=== PATIENT | male | born 1955 | race Caucasian/White ===

== ENCOUNTER → 2016-12-21 | Outpatient (CLI) | payer BC, OTHER ==
[2016-12-21 12:31] LABS: Basophils # (auto) 0 uL; Basophils % (auto) 0.3 % (0.0-2.0); DEFINITIVE VIEW TRANSMISSION; Eosinophils # (auto) 0.1 uL; Eosinophils % (auto) 1.4 % (0.0-7.0); Hematocrit 39.7 % (41.0-53.0); Hemoglobin 12.4 g/dL (13.5-17.5); Lymphocytes # (auto) 1.3 uL; Lymphocytes % (auto) 14.5 % (10.0-50.0); Mean Corpuscular Hemoglobin 26.4 pg (28.0-32.0); Mean Corpuscular Hgb Conc. 31.3 g/dL (32.0-36.0); Mean Corpuscular Volume 84.2 fL (80.0-100.0); Mean Platelet Volume 9.5 fL (7.4-10.4); Monocytes # (auto) 0.5 uL; Monocytes % (auto) 5.3 % (0.0-12.0); Neutrophils % (auto) 78.5 % (37.0-80.0); Platelet Count (auto) 265 10^3/uL (140-450); Red Cell Distribution Width 14.9 % (11.6-16.0); White Blood Cell 8.9 10^3/uL (4.4-10.8)
[2016-12-21 12:33] LABS: Urine Bilirubin Negative (Negative); Urine Blood Negative /uL (Negative); Urine Color Yellow (Yellow); Urine Glucose Normal (Normal); Urine Ketone Negative (Negative); Urine Nitrite Negative (Negative); Urine Urobilinogen Normal (Negative); Urine pH 5.5 (5.0-8.0)
[2016-12-21 13:44] LABS: Albumin 3.3 g/dL (3.4-5.0); BUN/Creatinine Ratio 24.4; Bilirubin, Direct 0.1 mg/dL (0-0.2); Bilirubin, Total 0.4 mg/dL (0.2-1.0); Calcium 8.7 mg/dL (8.5-10.1); Potassium 4.2 mmol/L (3.5-5.1); Total Protein 7.8 g/dL (6.4-8.2)
== END | disposition home or self-care (01) ==
LOC: LAB 08:38
PROVIDERS: ATTEND Internal Medicine Cardiovascular Disease
DX: D64.9 Anemia, unspecified (principal); I10 Essential (primary) hypertension; E78.00 Pure hypercholesterolemia, unspecified; E03.9 Hypothyroidism, unspecified; E55.9 Vitamin D deficiency, unspecified
CPT/HCPCS: 36415; 80048; 80061; 80076; 81003; 82306; 83036; 84153; 84403; 84443; 85025

== ENCOUNTER 2019-04-06 19:15 | Inpatient (IN) | payer BC ==
[~2019-04-06] VITALS: Ht 167.6 cm; Wt 127.7 kg
[2019-04-06 20:21] LABS: Basophils # (auto) 0 uL; Basophils % (auto) 0.3 % (0.0-2.0); Eosinophils # (auto) 0 uL; Eosinophils % (auto) 0.2 % (0.0-7.0); Hematocrit 39.1 % (41.0-53.0); Hemoglobin 12.8 g/dL (13.5-17.5); Lymphocytes # (auto) 0.6 uL; Lymphocytes % (auto) 5.5 % (10.0-50.0); Mean Corpuscular Hemoglobin 27.7 pg (28.0-32.0); Mean Corpuscular Hgb Conc. 32.6 g/dL (32.0-36.0); Monocytes # (auto) 0.6 uL; Monocytes % (auto) 6.1 % (0.0-12.0); Neutrophils # (auto) 8.9 uL; Neutrophils % (auto) 87.9 % (37.0-80.0); Platelet Count (auto) 252 10^3/uL (140-450); Red Cell Distribution Width 14.4 % (11.8-14.3); White Blood Cell 10.1 10^3/uL (4.4-10.8)
[2019-04-06 20:36] LABS: BUN/Creatinine Ratio 23.5; Calcium 7.8 mg/dL (8.5-10.1); Potassium 3.7 mmol/L (3.5-5.1)
[2019-04-06 20:40] LABS: Albumin 1.8 g/dL (3.4-5.0); Bilirubin, Total 0.3 mg/dL (0.2-1.0)
[2019-04-06] MEDS ORDERED: SODIUM CHLORIDE 0.9% 500 ML IV ONE (21:01)
[2019-04-06] MEDS ORDERED: CLINDAMYCIN 600MG IV 50 ML IV ONE (21:15)
[2019-04-06] MEDS ORDERED: ASPirin 81 mg TAB PO ONE ×2 (21:30→21:45)
[2019-04-06 21:32] LABS: Urine Bacteria FEW /hpf (None Seen); Urine Blood 1+ /uL (Negative); Urine Specific Gravity 1.015 (1.001-1.035); Urine WBC 2 /hpf (0 - 3)
[2019-04-06 22:24] LABS: INR 0.97 (0.9-1.15); Partial Thromboplastin Time 29.8 sec (23.64-32.05)
[2019-04-07] MEDS ORDERED: DEXTROSE (50%) 50ML SYRG IV ONE (01:15)
[2019-04-07] MEDS ORDERED: ONDANSETRON HCL 4 MG/2 ML VIAL IV PRN (02:15)
[2019-04-07] MEDS ORDERED: TEMAZEPAM 15 MG CAP PO PRN (02:15)
[2019-04-07] MEDS ORDERED: NITROGLYCERIN 0.4 MG SL TAB SL PRN (02:15)
[2019-04-07] MEDS ORDERED: MORPHINE SULF INJ 2 MG/ML SYRINGE 1ML IV PRN (02:15)
[2019-04-07] MEDS ORDERED: ACETAMINOPHEN 325 MG TAB PO PRN (02:15)
[2019-04-07] MEDS ORDERED: DEXTROSE (50%) 50ML SYRG IV PRN (02:15)
[2019-04-07] MEDS: DEXTROSE 10% 1,000 ML IV SCH ×2 (02:29→22:03)
[2019-04-07] MEDS ORDERED: FUROSEMIDE 20 MG/2 ML VIAL IV ONE (03:00)
--- NOTE | 2019-04-07 03:20 | NUR ---
Telemetry admit from [facility] admitted to Telemetry unit after SBAR received. Patient oriented to CAMILO CELESTE, primary RN, unit, room 276B, and unit policies regarding patient care and visiting hours. Patient now on continuous telemetry monitoring, tele box #35. Patient placed on bedside oxygen, weighed by bed scale and encouraged to call if they need something. All questions and concerns addressed, patient verbalized understanding.
[2019-04-07 03:26] LABS: CRP High Sensitivity 7.36 mg/dL (< 0.3)
[2019-04-07 03:35] VITALS: BP 129/68
[2019-04-07] MEDS: InsuLIN REG 1unit/0.01ml Soln (100units/ml) SC SCH ×5 (03:46→20:00)
[2019-04-07] MEDS: ACCU-CHEK COMFORT CURVE STRIP VI SCH ×5 (03:46→21:57)
--- NOTE | 2019-04-07 03:50 | NUR ---
Med Rec Pt states he does not remember the does of his meds but can try to figure it out today.
--- NOTE | 2019-04-07 04:00 | NUR ---
Low BG - 57 Gave pt a couple orange juices and BG ryan to 82 upon reassessment.
--- NOTE | 2019-04-07 04:20 | NUR ---
Wounds Photos Taken
[2019-04-07 05:00] VITALS: BP 110/52
[2019-04-07] MEDS ORDERED: PNEUMOCOCCAL VACC POLYS 25 MCG/0.5 ML VIAL IM ONE (05:15)
[2019-04-07] MEDS: CLINDAMYCIN 600MG IV 50 ML IV SCH ×3 (05:59→22:02)
--- NOTE | 2019-04-07 07:30 | NUR ---
Opening Shift Note Assumed care of patient, currently sleeping. No S/S of distress/SOB or pain. Will continue to monitor for changes Q1hr and PRN.
[2019-04-07 08:00] VITALS: BP 120/63
--- NOTE | 2019-04-07 08:00 | NUR ---
BLOOD SUGAR CRITICALLY LOW. FIRST CHECK 28 AND SECOND CHECK 31 PATIENT CURRENTLY ASYMPTOMATIC. MADE PATIENT DRINK 8 oz OF ORANGE JUICE AND ENCOURAGED HIM TO EAT HIS BREAKFAST TRAY.
--- NOTE | 2019-04-07 08:41 | NUR ---
BLOOD SUGAR RECHECK. BLOOD SUGAR NOW 72. WILL CONTINUE TO MONITOR.
--- NOTE | 2019-04-07 09:28 | NUR ---
Midline Placement Patient educated on need for midline placement. All risks and benefits explained and all questions and concerns addresses prior to procedure. 18g/10cm midline inserted via left brachial vein using Ultrasound. Sterile technique utilized. Blood return obtained from single lumen and flushed easily with NS using proper technique. Midline secured with saline lock; biodisc and occlusive dressing applied. Primary RN notified. Midline lot #[id number].
[2019-04-07] MEDS: ASPirin 81 mg TAB PO SCH (10:15)
[2019-04-07] MEDS: PANTOPRAZOLE 40 MG TAB PO SCH (10:15)
[2019-04-07] MEDS: cefTRIAXone 1GM/50ML D5W 50 ML IV SCH (10:15)
[2019-04-07] MEDS: FUROSEMIDE 40 MG TAB PO SCH (10:15)
[2019-04-07 12:00] VITALS: BP 151/67
[2019-04-07 17:00] VITALS: BP 147/76
--- NOTE | 2019-04-07 18:45 | NUR ---
Patient's midline is hard to flush. Line seems very positional. Iv infusion paused for the time being. will inform maintenance supervisor 2nd shift nurse that the patient may need a regular iv to continue dextrose infusion.
[2019-04-07 22:00] VITALS: BP 136/59
[2019-04-08] VITALS (7 sets, daily range): BP systolic 149–193; BP diastolic 61–83
[2019-04-08] MEDS: ACCU-CHEK COMFORT CURVE STRIP VI SCH ×7 (00:28→23:49)
--- NOTE | 2019-04-08 00:31 | NUR ---
Patient's blood sugar 160, no insulin given due to patient just had a snack and blood sugar has been running low the the day. Will continue to monitor.
--- NOTE | 2019-04-08 01:07 | NUR ---
IV insertion IV access obtained, via clean sterile technique by inserting #22 gauge catheter at right upper arm after 2 attempts. IV secured properly. No trauma to site. Patient tolerated well. Midline to MARIJA sluggish to flush and MARIJA with swelling.
[2019-04-08] MEDS: InsuLIN REG 1unit/0.01ml Soln (100units/ml) SC SCH ×7 (04:00→23:49)
[2019-04-08] MEDS: CLINDAMYCIN 600MG IV 50 ML IV SCH ×3 (05:31→21:45)
[2019-04-08 07:19] LABS: Basophils # (auto) 0 uL; Basophils % (auto) 0.4 % (0.0-2.0); Eosinophils # (auto) 0.2 uL; Eosinophils % (auto) 2.4 % (0.0-7.0); Hematocrit 36.5 % (41.0-53.0); Lymphocytes # (auto) 0.9 uL; Mean Corpuscular Hemoglobin 27.6 pg (28.0-32.0); Mean Corpuscular Hgb Conc. 32.9 g/dL (32.0-36.0); Mean Corpuscular Volume 83.8 fL (80.0-100.0); Monocytes % (auto) 10.2 % (0.0-12.0); Neutrophils # (auto) 7.3 uL; Nucleated Red Blood Cells % 0.1 %; Platelet Count (auto) 261 10^3/uL (140-450); Red Blood Cells 4.36 10^6/uL (4.5-5.90); Red Cell Distribution Width 14.4 % (11.8-14.3); White Blood Cell 9.4 10^3/uL (4.4-10.8)
[2019-04-08 07:41] LABS: BUN/Creatinine Ratio 25.2; Calcium 7.9 mg/dL (8.5-10.1); Potassium 4.1 mmol/L (3.5-5.1)
--- NOTE | 2019-04-08 07:45 | NUR ---
OFFICE CLERK ASSISTANT REPORTS PT BP 193/83 HR 78. PT A AND O X4 SITTING UP IN BED EATING BREAKFAST. RECHECKED BP BP 191/108. PAGED HOSPITALIST, HOSPITALIST CALLED BACK NEW ORDERS FOR CLONIDINE.
--- NOTE | 2019-04-08 08:16 | NUR ---
PT BLOOD SUGAR 168, INSULIN HELD. RECEIVED IN REPORT PT BLOOD SUGAR DROPS, AND PT REPORTS HE DOESN'T TAKE INSULIN AT HOME, HE REPORTS HE TAKES METFORMIN.
[2019-04-08] MEDS: cefTRIAXone 1GM/50ML D5W 50 ML IV SCH (08:34)
[2019-04-08] MEDS: cloNIDine HCL 0.1 MG TAB PO PRN ×2 (08:35→20:59)
[2019-04-08] MEDS: ASPirin 81 mg TAB PO SCH (09:58)
[2019-04-08] MEDS: ENOXAPARIN SOD 30 MG/0.3 ML SYRINGE SC SCH (09:59)
[2019-04-08] MEDS: FUROSEMIDE 40 MG TAB PO SCH (09:59)
[2019-04-08] MEDS: PANTOPRAZOLE 40 MG TAB PO SCH (09:59)
--- NOTE | 2019-04-08 11:00 | NUR ---
REASSESSED PT BP, NEW BP 161/69, HR 79. PT REPORTS NO SYMPTOMS AND IS SITTING IN CHAIR. CLEANED PT LEFT LOWER EXTREMITY WITH WITH NS AND 4X4 GAUZE AND COVERED WITH OPTIFOAM. LEFT LOWER EXTREMITY SWOLLEN 3 PLUS PITTING EDEMA AND WEEPING WITH ERYTHEMA.
--- NOTE | 2019-04-08 12:00 | NUR ---
PT REPORTS HE ATE LUNCH WELL, LOOKED AT TRAY, PT ATE APPROX 90 PERCENT OF LUNCH, BS 258, 6 UNITS INSULIN GIVEN. PT INSTRUCTED TO USE CALL LIGHT IF HE FEELS DIZZY, WEAK, SWEATY, OR HAS ANY OTHER SYMPTOMS, PT AGREED.
--- NOTE | 2019-04-08 13:03 | NUR ---
PT BP 161/69 AFTER CLON[address] PRN. PAGED [address] LATOYA TANNER, AWAITING CALL BACK.
[2019-04-08] MEDS ORDERED: BENAZEPRIL HCL 10 MG TAB PO ONE (13:15)
--- NOTE | 2019-04-08 13:45 | NUR ---
SPOKE WITH DR LATOYA TANNER, NEW ORDERS FOR BENAZEPRIL AND TO GET LIST OF PT HOME BP MEDS. PT REPORTS HE TAKES BENAZEPRIL AND DILTIAZEM, BUT IS UNABLE TO REMEMBER DOSAGES. PAGED DR TANNER TO NOTIFY HER, AWAITING CALL BACK.
[2019-04-08] MEDS: BENAZEPRIL HCL 10 MG TAB PO SCH (16:15)
[2019-04-08] MEDS ORDERED: METF-370 PO (17:28)
[2019-04-08] MEDS ORDERED: ASP81EC PO (17:30)
[2019-04-08] MEDS ORDERED: DILT60TA27 PO (17:32)
[2019-04-08] MEDS ORDERED: BENA20TA14 PO (17:33)
[2019-04-08] MEDS ORDERED: DOXA4TAB5 PO (17:34)
[2019-04-08] MEDS ORDERED: PIO30T PO (17:37)
[2019-04-08] MEDS: DEXTROSE 10% 1,000 ML IV SCH (17:39)
--- NOTE | 2019-04-08 22:08 | NUR ---
Patient's blood sugar in the 200's, patient eating well and still on D10 at 50ml/hr. Paged Hospitalist.
--- NOTE | 2019-04-08 22:09 | NUR ---
Patient informed nurse that he is using CPAP every night at home, called RT to verify, order is needed. Paged Hospitalist. Patient not aware of home settings and will let sister bring own CPAP machine tomorrow.
--- NOTE | 2019-04-08 22:17 | NUR ---
Hospitalist Charley Dean called back, new order received to D/C D10 and initiate CPAP per RT.
--- NOTE | 2019-04-09 | NUR ---
Patient's blood pressure remains in the 160's, now 161/61, HR 82, after the Clonidine 1mg po. Hospitalist paged.
[2019-04-09] MEDS: cloNIDine HCL 0.1 MG TAB PO PRN ×4 (03:56→23:07)
[2019-04-09] MEDS: InsuLIN REG 1unit/0.01ml Soln (100units/ml) SC SCH ×5 (03:57→20:57)
[2019-04-09] MEDS: ACCU-CHEK COMFORT CURVE STRIP VI SCH ×5 (03:58→20:57)
[2019-04-09 05:40] VITALS: BP 156/76
[2019-04-09] MEDS: CLINDAMYCIN 600MG IV 50 ML IV SCH ×3 (05:56→22:49)
[2019-04-09 06:38] LABS: Potassium 4.2 mmol/L (3.5-5.1)
[2019-04-09 06:51] LABS: Calcium 8.5 mg/dL (8.5-10.1)
--- NOTE | 2019-04-09 07:15 | NUR ---
Opening Shift Note Received report from Arely RN. Assumed care of patient, awake and alert. No S/S of distress or pain. Reported improved SOB. Noted left leg with open blisters and some weeping, patient said said that it is imrproving. Right leg is more improved, no weeping wounds noted. Instructed on POC and to call for assist PRN, will continue to monitor for changes Q1hr and PRN.
--- NOTE | 2019-04-09 07:30 | NUR ---
Closing Note: Patient had CPAP by RT for a few hours, not tolerating CPAP, refused to use for the rest of the night. No respiratory distress noted.
[2019-04-09 08:00] VITALS: BP 157/71
[2019-04-09] MEDS: cefTRIAXone 1GM/50ML D5W 50 ML IV SCH (08:34)
--- NOTE | 2019-04-09 09:00 | NUR ---
CALLED PHARMACIST FOR ANGEL VACCINE, SAID THAT IT WILL BE GIVEN IF PATIENT IS FOR DISCHARGE. WILL ENDORSE TO INCOMING NURSE ISA.
[2019-04-09 09:17] VITALS: BP 157/71
[2019-04-09] MEDS: ENOXAPARIN SOD 30 MG/0.3 ML SYRINGE SC SCH (09:22)
[2019-04-09] MEDS: PANTOPRAZOLE 40 MG TAB PO SCH (09:22)
[2019-04-09] MEDS: ASPirin 81 mg TAB PO SCH (09:23)
[2019-04-09] MEDS: BENAZEPRIL HCL 10 MG TAB PO SCH (09:23)
[2019-04-09] MEDS: FUROSEMIDE 40 MG TAB PO SCH (09:23)
[2019-04-09 13:07] VITALS: BP 154/74
--- NOTE | 2019-04-09 16:15 | NUR ---
Dr. Villa at bedside. Received new verbal orders regarding the left wound dressing. See new orders.
--- NOTE | 2019-04-09 17:05 | NUR ---
Wound Care Wound care provided per MD order. Patient tolerated well and verbalized dressing care instructions.
[2019-04-09 17:06] VITALS: BP 166/89
[2019-04-09] MEDS: metFORMIN HYDROCHLORIDE 500 MG TAB PO SCH (17:57)
--- NOTE | 2019-04-09 18:45 | NUR ---
Wound Care NUrse Dejah at bedside.
--- NOTE | 2019-04-09 18:52 | NUR ---
WOUND CARE NOTE: Wound care in to see patient per wound care request regarding "left leg open blisters". Patient came in with BLE edema and erythema, weeping legs. Photograph of his legs by bedside nurse upon admission for reference. Patient is 63 years old male with admitting diagnosis of Elevated Troponin. He has history of DM, htn. Patient is resting in bed in Rm. 276B. He's awake, alert and oriented. Patient is ambulatory and able to turn and reposition self. His current Artis score is 19. He denies any pain at this time. Skin/wound assessment done with the assistance of patient's nurse, CHRISTIANE Garza. Patient's BLE has edema and erythema. Swelling and erythema to LLE is worse in comparison to RLE. His Lt bird has multi open blisters, with moderate serous drainage. Wound culture specimen reported sent to lab for processing. Cleansed patient's LLE wounds with wound cleanser, patted dry with gauze,applied Thera honey gauze, covered with large abd pad, wrapped with Kerlix and secured with tape. New photograph of mentioned LLE wounds are taken for reference. understanding. Patient tolerated skin/wound examination well, and denies any other wound. US of Lower Ext dne (see result). Patient has cardiology consult. RECOMMENDATION: EOD/PRN dressing change to LLE wounds per MD order, Dietary consult due to presence of wounds and obesity, elevate BLE on pillows, continue monitoring by wound care while patient is hospitalized. Addendum: 04/09/19 at 1923 by Dejah Panchal RN Amended: Links added.
--- NOTE | 2019-04-09 19:00 | NUR ---
RELAYED RPT BLOOD PRESSURE CHECK TO HOSPITALIST. RECEIVED NEW TELEPHONE ORDER FROM SHAHID ZEPEDA, SEE NEW ORDERS.
[2019-04-09] MEDS: METOPROLOL TARTRATE 50 MG TAB PO SCH (19:33)
--- NOTE | 2019-04-09 19:35 | NUR ---
Opening Shift Note Assumed care of patient, awake and alert. No S/S of distress/SOB or pain. Instructed on POC and to call for assist PRN, will continue to monitor for changes Q1hr and PRN. Bed in low position, call raman with in reach.
[2019-04-09 21:50] VITALS: BP 191/83
[2019-04-10] MEDS: InsuLIN REG 1unit/0.01ml Soln (100units/ml) SC SCH ×6 (00:40→20:06)
[2019-04-10] MEDS: ACCU-CHEK COMFORT CURVE STRIP VI SCH ×6 (00:41→20:06)
--- NOTE | 2019-04-10 03:52 | NUR ---
PT ASSESSED FOR MED NEB TX, NO INDICATION AT THIS TIME. NO SOB/RESP DISTRESS NOTED, CLEAR LEA T/O. WILL CONTINUE TO MONITOR PRN. SEE VITALS FLOW CHART.
[2019-04-10 05:04] VITALS: BP 158/75
[2019-04-10] MEDS: CLINDAMYCIN 600MG IV 50 ML IV SCH ×3 (05:30→22:04)
[2019-04-10] MEDS: metFORMIN HYDROCHLORIDE 500 MG TAB PO SCH ×2 (05:30→17:34)
--- NOTE | 2019-04-10 07:20 | NUR ---
Opening Shift Note Received report from Arely GRANDE. Assumed care of patient, awake and alert. No S/S of distress/SOB or pain. Reported no pain, awaiting cardiology consult. NOted left lower leg with dry & intact dressing, with mild drainage. Instructed on POC and to call for assist PRN, will continue to monitor for changes Q1hr and PRN.
[2019-04-10] MEDS: BENAZEPRIL HCL 10 MG TAB PO SCH (08:12)
[2019-04-10] MEDS: cefTRIAXone 1GM/50ML D5W 50 ML IV SCH (08:12)
--- NOTE | 2019-04-10 08:13 | NUR ---
Respiratory note: ROUTINE CHECK. PT NOT WEARING CPAP. NO SOB OR DISTRESS NOTED. PT IS ON RA.
[2019-04-10 09:00] VITALS: BP 176/77
[2019-04-10] MEDS: FUROSEMIDE 40 MG TAB PO SCH (09:35)
[2019-04-10] MEDS: ENOXAPARIN SOD 30 MG/0.3 ML SYRINGE SC SCH (09:35)
[2019-04-10] MEDS: PANTOPRAZOLE 40 MG TAB PO SCH (09:36)
[2019-04-10] MEDS: ASPirin 81 mg TAB PO SCH (09:36)
[2019-04-10] MEDS: DILTIAZEM HCL 60 MG TAB PO SCH ×2 (09:36→21:28)
[2019-04-10] MEDS: METOPROLOL TARTRATE 50 MG TAB PO SCH ×2 (09:36→21:27)
--- NOTE | 2019-04-10 12:55 | NUR ---
Dr. Headley at bedside.
[2019-04-10 13:00] VITALS: BP 141/51
--- NOTE | 2019-04-10 14:59 | NUR ---
Nutrition Assessment/consult Notes please see attached link for complete assessment Est. Needs ABW [id number] kcal (17-20 kcal/kgBW), 80-101 gms pro (0.8-1.0 gms/kgBW r/t elev RFT wounds severe hypoalb). Will continue to monitor pertinent labs and reassess nutrient need prn Addendum: 04/10/19 at [address] Amended: Links added.
--- NOTE | 2019-04-10 15:00 | NUR ---
TELEMETRY MONITORING BOX RETURNED TO [facility]. PATIENT IS DOWNGRADED TO MEDSUR. WILL CONTINUE CARE.
--- NOTE | 2019-04-10 15:52 | NUR ---
PATIENT HAS [employer] CROSS INSURANCE, I.D. CARDS PHOTOCOPIED AND PLACED IN CHART.
--- NOTE | 2019-04-10 16:45 | NUR ---
Wound Care Wound care provided per MD order. Patient tolerated well and verbalized dressing care instructions.
[2019-04-10 17:00] VITALS: BP 156/79
--- NOTE | 2019-04-10 19:24 | NUR ---
Opening Shift Note Assumed care of patient, awake and alert. No S/S of distress/SOB or pain. Instructed on POC and to call for assist PRN, will continue to monitor for changes Q1hr and PRN. Call raman with in reach. Patient sitting on chair.
[2019-04-10 22:05] VITALS: BP 165/79
--- NOTE | 2019-04-10 23:11 | NUR ---
IV insertion IV access obtained, via clean sterile technique by inserting # 22 gauge catheter at left forearm. IV secured properly. No trauma to site. Patient tolerated well. IV removal IV DC'd to JUAN with clean sterile technique, catheter fully intact. Pressure dressing applied to site. Patient tolerated well.
[2019-04-11] MEDS: ACCU-CHEK COMFORT CURVE STRIP VI SCH ×6 (00:53→20:54)
[2019-04-11] MEDS: InsuLIN REG 1unit/0.01ml Soln (100units/ml) SC SCH ×6 (00:53→20:55)
[2019-04-11 05:06] VITALS: BP 159/79
[2019-04-11] MEDS: CLINDAMYCIN 600MG IV 50 ML IV SCH (05:32)
--- NOTE | 2019-04-11 06:00 | NUR ---
Respiratory note: PT NOT WEARING CPAP. NO SOB OR DISTRESS NOTED. PT IS ON RA SPO2 95% HR 71 RR 20.
[2019-04-11] MEDS: metFORMIN HYDROCHLORIDE 500 MG TAB PO SCH ×2 (06:10→17:37)
[2019-04-11 06:37] LABS: Calcium 8.4 mg/dL (8.5-10.1); Potassium 4.6 mmol/L (3.5-5.1)
--- NOTE | 2019-04-11 07:20 | NUR ---
Opening Shift Note RECEIVED REPORT FROM NOC RN. Assumed care of patient, awake and alert. No S/S of distress/SOB or pain. BED IN LOWEST, LOCKED POSITION WITH SIDERAILS UP x2. Instructed on POC and to call for assist PRN, will continue to monitor for changes Q1hr and PRN.
--- NOTE | 2019-04-11 07:55 | NUR ---
Patient sitting in chair, no acute distress noted. Swelling noted on the left lower leg covered with wound dressing.
--- NOTE | 2019-04-11 08:00 | NUR ---
Patient sitting in bed, eating breakfast, wearing eyeglasses/shades. No acute distress noted. Addendum: 04/11/19 at 0814 by Celsa Camacho RN WRONG PATIENT.
[2019-04-11 08:30] VITALS: BP 153/52
[2019-04-11] MEDS: cefTRIAXone 1GM/50ML D5W 50 ML IV SCH (08:49)
[2019-04-11] MEDS: ASPirin 81 mg TAB PO SCH (10:27)
[2019-04-11] MEDS: DILTIAZEM HCL 60 MG TAB PO SCH ×2 (10:28→22:46)
[2019-04-11] MEDS: METOPROLOL TARTRATE 50 MG TAB PO SCH ×2 (10:28→22:45)
[2019-04-11] MEDS: FUROSEMIDE 40 MG TAB PO SCH (10:28)
[2019-04-11] MEDS: BENAZEPRIL HCL 10 MG TAB PO SCH (10:29)
[2019-04-11] MEDS: PANTOPRAZOLE 40 MG TAB PO SCH (10:29)
[2019-04-11] MEDS: ENOXAPARIN SOD 30 MG/0.3 ML SYRINGE SC SCH (10:29)
[2019-04-11] MEDS: cloNIDine HCL 0.1 MG TAB PO PRN (12:13)
--- NOTE | 2019-04-11 12:45 | NUR ---
Dr. Headley at bedside. assessed the left lower leg of the patient. Dr. Headley to call Dr. Davis.
--- NOTE | 2019-04-11 12:50 | NUR ---
Dr. Davis came over.
--- NOTE | 2019-04-11 12:55 | NUR ---
Cleaned thew left lower leg, Hydraguard skin protectant applied, Abd pad applied, rolled with Kerlix. Addendum: 04/11/19 at 1555 by Celsa Camcaho RN the
[2019-04-11 13:06] VITALS: BP 163/75
--- NOTE | 2019-04-11 13:10 | NUR ---
Dr. Davis came over. ordered PICC Line Consult, Dobutamine drip.
--- NOTE | 2019-04-11 14:00 | NUR ---
Patient has pending PICC Line Consult. Dobutamine and Lasix drip on hold.
[2019-04-11 15:13] LABS: INR 1.02 (0.9-1.15); Partial Thromboplastin Time 29.2 sec (23.64-32.05)
--- NOTE | 2019-04-11 15:20 | NUR ---
Patient on PICC Line Consult.
--- NOTE | 2019-04-11 16:03 | NUR ---
PICC line placement Patient educated on need for PICC line placement. All risks and benefits explained and all questions and concerns addressed prior to procedure. Noted past medical history and allergies with no contraindications. INR and Plt counts within acceptable range. 5 fr PICC line inserted via right brachial vein using [employer] US and Tip Location System. Sterile technique with maximum barrier precautions utilized. Blood return obtained from each of the three lumens and each flushed easily with NS using proper technique. PICC secured with Stat-lock; biodisc and occlusive dressing applied. Stat portable chest x-ray obtained for PICC tip placement. *Baseline Arm Circumference 36 cm. *Internal Length 45 cm. *External Length 0 cm. *PICC lot #[id number]. Note: EBL 5ccs.
[2019-04-11] MEDS ORDERED: LIDOCAINE 1% (LOCAL ANESTH.) PF 5ml SDV ID ONE (16:15)
--- NOTE | 2019-04-11 16:25 | NUR ---
Called Pharmacy for the Lasix drip. Pharmacy to send the medication.
[2019-04-11] MEDS: DOBUTamine 1000MCG/ML 250 ML IV SCH ×2 (16:28→22:44)
[2019-04-11] MEDS: FUROSEMIDE INJECTION 250 MG in D5W 5% 225 ML IV SCH (16:30)
--- NOTE | 2019-04-11 16:42 | NUR ---
Okay to use PICC Line X-ray completed. Primary RN notified.
[2019-04-11 17:11] VITALS: BP 139/73
--- NOTE | 2019-04-11 18:41 | NUR ---
Informed Dr. Davis if he will order to upgrade the patient to Telemetry, patient is on Dobutamine and Lasix drip as he ordered.
--- NOTE | 2019-04-11 19:10 | NUR ---
Dr. Davis ordered to upgrade the patient to Telemetry.
--- NOTE | 2019-04-11 19:15 | NUR ---
Opening Shift Note Received report from CHRISTIANE Steen and assumed care of patient, awake and alert. No S/S of distress/SOB or pain. Instructed patient and to call for assist if needed and verbalized understanding. Will continue to monitor .
[2019-04-11] MEDS: SODIUM CHLOR 0.9% PF (SALINE LOCK) 10ML VIAL/SYR IV SCH (22:44)
[2019-04-11 23:45] VITALS: BP 135/76
[2019-04-12] VITALS (7 sets, daily range): BP systolic 123–161; BP diastolic 54–82
[2019-04-12] MEDS: ACCU-CHEK COMFORT CURVE STRIP VI SCH ×6 (00:44→21:08)
[2019-04-12] MEDS: InsuLIN REG 1unit/0.01ml Soln (100units/ml) SC SCH ×6 (00:45→21:08)
[2019-04-12] MEDS: DOBUTamine 1000MCG/ML 250 ML IV SCH ×3 (06:21→21:07)
[2019-04-12] MEDS: metFORMIN HYDROCHLORIDE 500 MG TAB PO SCH ×2 (06:22→17:51)
[2019-04-12] MEDS: cloNIDine HCL 0.1 MG TAB PO PRN (08:40)
--- NOTE | 2019-04-12 08:40 | NUR ---
BP = 161/69. Catapres 0.1 mg PO given for SBP>150.
[2019-04-12] MEDS: SODIUM CHLOR 0.9% PF (SALINE LOCK) 10ML VIAL/SYR IV SCH ×2 (10:00→22:24)
[2019-04-12] MEDS: ENOXAPARIN SOD 30 MG/0.3 ML SYRINGE SC SCH (10:16)
[2019-04-12] MEDS: METOPROLOL TARTRATE 50 MG TAB PO SCH ×2 (10:16→22:24)
[2019-04-12] MEDS: ASPirin 81 mg TAB PO SCH (10:16)
[2019-04-12] MEDS: PANTOPRAZOLE 40 MG TAB PO SCH (10:16)
[2019-04-12] MEDS: BENAZEPRIL HCL 10 MG TAB PO SCH (10:17)
[2019-04-12] MEDS: DILTIAZEM HCL 60 MG TAB PO SCH ×2 (10:18→22:24)
[2019-04-12] MEDS: LEVOFLOXACIN 500MG 100 ML IV SCH (10:23)
[2019-04-12] MEDS: FUROSEMIDE INJECTION 250 MG in D5W 5% 225 ML IV SCH (14:50)
--- NOTE | 2019-04-12 17:04 | NUR ---
WOUND CARE WOUND CARE PERFORMED TO LEFT LOWER EXTREMITY. WOUND CLEANED WITH NORMAL SALINE. HYDROGUARD, ABD PAD, AND KERLIX APPLIED.
[2019-04-13] MEDS: ACCU-CHEK COMFORT CURVE STRIP VI SCH ×6 (00:23→20:52)
[2019-04-13] MEDS: InsuLIN REG 1unit/0.01ml Soln (100units/ml) SC SCH ×6 (00:25→20:51)
[2019-04-13] MEDS: DOBUTamine 1000MCG/ML 250 ML IV SCH ×4 (04:04→23:29)
[2019-04-13 05:00] VITALS: BP 144/71
[2019-04-13] MEDS: metFORMIN HYDROCHLORIDE 500 MG TAB PO SCH ×2 (06:06→18:17)
[2019-04-13 08:54] VITALS: BP 157/61
--- NOTE | 2019-04-13 10:00 | NUR ---
Wound dressing change done. Cleaned the wound on the left lower leg, applied Hydraguard skin protectant, Abd pad applied, rolled with Kerlix.
[2019-04-13] MEDS: LEVOFLOXACIN 500MG 100 ML IV SCH (10:09)
[2019-04-13] MEDS: SODIUM CHLOR 0.9% PF (SALINE LOCK) 10ML VIAL/SYR IV SCH ×2 (10:10→21:47)
[2019-04-13] MEDS: ENOXAPARIN SOD 30 MG/0.3 ML SYRINGE SC SCH (11:32)
[2019-04-13] MEDS: BENAZEPRIL HCL 10 MG TAB PO SCH (11:33)
[2019-04-13] MEDS: PANTOPRAZOLE 40 MG TAB PO SCH (11:34)
[2019-04-13] MEDS: DILTIAZEM HCL 60 MG TAB PO SCH ×2 (11:34→21:44)
[2019-04-13] MEDS: ASPirin 81 mg TAB PO SCH (11:35)
[2019-04-13] MEDS: METOPROLOL TARTRATE 50 MG TAB PO SCH ×2 (11:35→21:45)
--- NOTE | 2019-04-13 12:46 | NUR ---
Nutrition Follow-up Notes Wt.: 132.5 kg Pt's asleep, no immediate family member at bedside during rounds this morning. Pt's no signs of distress noted earlier, per records pt with severe chf. pt is currently on CCHO 60 gm/meal diet with adequate PO of 100% x 5 per RN doc Est. Needs ABW [id number] kcal (17-20 kcal/kgBW), 80-101 gms pro (0.8-1.0 gms/kgBW r/t elev RFT wounds severe hypoalb). Will continue to monitor pertinent labs and reassess nutrient need prn Labs: No new labs today 04/11: BUN 30 H, CA 8.4 , POC GLU 158 H Skin: Artis scale 20, low risk cellulitis with blister on leg per RN doc. refer to WC notes for details GI: Pt had 1 BM today per supervisor pleating. PES: Altered nutrition related lab values r/t current/chronic medical condition aeb elev RFT A1C, severe hypoalb, hyperglycemia Decreased nutrient needs r/t adiposity aeb pt`s high BMI of 52.4 kgm2 and pt reporting unhealthy eating habits Will continue to monitor PO intake, skin status, pertinent labs and weight trend. F/u in 3 to 5 days. Rec.: 1.) refer to CDE on DC. 2) consider MVI/C bid. 3) consider prostat 1 packet bid as RFT improve. 4) consider 2 mg na along with current diet. 5) continue current plan of care
[2019-04-13 13:00] VITALS: BP 132/82
--- NOTE | 2019-04-13 15:20 | NUR ---
Patient sitting in chair, awake, no acute distress noted. Patient stated Dr. Davis came over to see him today.
[2019-04-13] MEDS: FUROSEMIDE INJECTION 250 MG in D5W 5% 225 ML IV SCH (15:26)
[2019-04-13 17:00] VITALS: BP 134/61
[2019-04-13 20:00] VITALS: BP 155/72
[2019-04-13] MEDS: ASCORBIC ACID 500 MG TAB PO SCH (21:46)
[2019-04-13 22:00] VITALS: BP 155/72
[2019-04-14] MEDS: ACCU-CHEK COMFORT CURVE STRIP VI SCH ×6 (00:43→22:22)
[2019-04-14] MEDS: InsuLIN REG 1unit/0.01ml Soln (100units/ml) SC SCH ×6 (00:45→22:22)
[2019-04-14 05:00] VITALS: BP 124/61
[2019-04-14] MEDS: metFORMIN HYDROCHLORIDE 500 MG TAB PO SCH ×2 (06:23→17:44)
[2019-04-14] MEDS: DOBUTamine 1000MCG/ML 250 ML IV SCH ×3 (06:58→16:46)
--- NOTE | 2019-04-14 07:30 | NUR ---
Patient sitting in chair, awake, oriented x4, no acute distress noted.
--- NOTE | 2019-04-14 08:20 | NUR ---
Cleansed the left lower leg, applied Hydraguard skin protectant, applied Abd pad, rolled with Kerlix.
[2019-04-14 09:00] VITALS: BP 125/71
[2019-04-14] MEDS: LEVOFLOXACIN 500MG 100 ML IV SCH (10:06)
[2019-04-14] MEDS: BENAZEPRIL HCL 10 MG TAB PO SCH (10:07)
[2019-04-14] MEDS: ASPirin 81 mg TAB PO SCH (10:08)
[2019-04-14] MEDS: PANTOPRAZOLE 40 MG TAB PO SCH (10:08)
[2019-04-14] MEDS: DILTIAZEM HCL 60 MG TAB PO SCH ×2 (10:08→22:00)
[2019-04-14] MEDS: ASCORBIC ACID 500 MG TAB PO SCH ×2 (10:08→22:21)
[2019-04-14] MEDS: MULTIPLE VITAMIN TAB PO SCH (10:08)
[2019-04-14] MEDS: METOPROLOL TARTRATE 50 MG TAB PO SCH ×2 (10:08→22:21)
[2019-04-14] MEDS: ENOXAPARIN SOD 30 MG/0.3 ML SYRINGE SC SCH (10:09)
[2019-04-14] MEDS: SODIUM CHLOR 0.9% PF (SALINE LOCK) 10ML VIAL/SYR IV SCH ×2 (10:09→22:00)
--- NOTE | 2019-04-14 12:00 | NUR ---
Patient sitting in chair, no acute distress noted.
[2019-04-14 13:00] VITALS: BP 108/51
[2019-04-14] MEDS: FUROSEMIDE INJECTION 250 MG in D5W 5% 225 ML IV SCH (13:08)
[2019-04-14 16:32] LABS: Basophils # (auto) 0.1 uL; Basophils % (auto) 0.7 % (0.0-2.0); Eosinophils # (auto) 0.3 uL; Eosinophils % (auto) 2.3 % (0.0-7.0); Hematocrit 40.3 % (41.0-53.0); Hemoglobin 13.1 g/dL (13.5-17.5); Lymphocytes # (auto) 1.6 uL; Mean Corpuscular Hemoglobin 27.2 pg (28.0-32.0); Mean Corpuscular Hgb Conc. 32.5 g/dL (32.0-36.0); Mean Corpuscular Volume 83.8 fL (80.0-100.0); Monocytes % (auto) 7.6 % (0.0-12.0); Neutrophils # (auto) 10.2 uL; Neutrophils % (auto) 77.4 % (37.0-80.0); Nucleated Red Blood Cells % 0.2 %; Platelet Count (auto) 345 10^3/uL (140-450); Red Blood Cells 4.81 10^6/uL (4.5-5.90); Red Cell Distribution Width 13.8 % (11.8-14.3); White Blood Cell 13.2 10^3/uL (4.4-10.8)
[2019-04-14 16:58] LABS: Calcium 8.3 mg/dL (8.5-10.1); Potassium 4.1 mmol/L (3.5-5.1)
[2019-04-14 17:00] VITALS: BP 116/62
[2019-04-14 17:01] LABS: BUN/Creatinine Ratio 15.7; Bilirubin, Total 0.3 mg/dL (0.2-1.0); Total Protein 7.3 g/dL (6.4-8.2)
--- NOTE | 2019-04-14 17:46 | NUR ---
Patient sitting in chair, eating dinner.
--- NOTE | 2019-04-14 19:30 | NUR ---
Opening Shift Note Assumed care of patient, eyes closed, respirations even and unlabored. No S/S of distress/SOB or pain. Bed in lowest locked position, side rails up x2, call light within reach. Dobutamine and Lasix drips infusing as ordered, see emar. Instructed on POC and to call for assist PRN, will continue to monitor for changes Q1hr and PRN.
[2019-04-14 21:59] VITALS: BP 135/50
[2019-04-15] MEDS: DOBUTamine 1000MCG/ML 250 ML IV SCH ×4 (00:37→17:48)
[2019-04-15] MEDS: ACCU-CHEK COMFORT CURVE STRIP VI SCH ×4 (00:37→16:52)
[2019-04-15] MEDS: InsuLIN REG 1unit/0.01ml Soln (100units/ml) SC SCH ×4 (00:38→17:11)
--- NOTE | 2019-04-15 02:15 | NUR ---
PICC Line Dressing Change PICC line dressing noted to be bloody, dressing change done by Riya GRANDE with a sterile technique. Cleansed with chloraprep scrub/betadine. Stat lock, and bio-patch as available. Occlusive dressing applied. Patient tolerated well, will continue to monitor.
--- NOTE | 2019-04-15 04:00 | NUR ---
Bleeding Patient noted to be bleeding under PICC line dressing at this time. Patient noted to have small skin tear per Riya RN when dressing was changed previously in shift. PICC line gives good blood return, all ports flush. Charge nurse Keyanna GRANDE made aware, will continue to monitor. No s/s of distress at this time.
[2019-04-15 05:05] VITALS: BP 112/72
[2019-04-15] MEDS: metFORMIN HYDROCHLORIDE 500 MG TAB PO SCH ×2 (06:47→18:15)
--- NOTE | 2019-04-15 07:00 | NUR ---
Closing Note Patient lying in bed, awake and alert. No s/s of distress. Will endorse care to dayshift RN.
[2019-04-15 08:00] VITALS: BP 124/53
--- NOTE | 2019-04-15 08:00 | NUR ---
Opening Shift Note Assumed care of patient, awake, alert and oriented X4. No S/S of distress/SOB or pain. Tele# 1, sinus rhythm @ 72 bpm. Right upper arm triple lumen PICC with saturated dressing, sanguinous drainage, all ports flushed with positive blood return. Per night nurseJoanne, patients right upper arm began bleeding under the PICC dressing, but not from PICC insertion site but a skin tear next to insertion site. Per night nurse. dressing had been changed but site continued to bleed. Will change dressing and assess skin integrity. Left lower extremity dressing clean, dry and intact. Instructed on POC and to call for assist PRN, verbalized understanding. Bed locked, in lowest position, call light within reach, will continue to monitor for changes Q1hr and PRN.
[2019-04-15] MEDS: METOPROLOL TARTRATE 50 MG TAB PO SCH (10:00)
[2019-04-15] MEDS: BENAZEPRIL HCL 10 MG TAB PO SCH (10:00)
[2019-04-15] MEDS: ENOXAPARIN SOD 30 MG/0.3 ML SYRINGE SC SCH (10:00)
[2019-04-15] MEDS: DILTIAZEM HCL 60 MG TAB PO SCH (10:00)
[2019-04-15] MEDS: SODIUM CHLOR 0.9% PF (SALINE LOCK) 10ML VIAL/SYR IV SCH (10:22)
[2019-04-15] MEDS: FUROSEMIDE INJECTION 250 MG in D5W 5% 225 ML IV SCH (10:26)
[2019-04-15] MEDS: ASCORBIC ACID 500 MG TAB PO SCH (11:09)
[2019-04-15] MEDS: LEVOFLOXACIN 500MG 100 ML IV SCH (11:09)
[2019-04-15] MEDS: ASPirin 81 mg TAB PO SCH (11:09)
[2019-04-15] MEDS: PANTOPRAZOLE 40 MG TAB PO SCH (11:09)
[2019-04-15] MEDS: MULTIPLE VITAMIN TAB PO SCH (11:09)
--- NOTE | 2019-04-15 12:00 | NUR ---
ROUNDS Dr Davis at bedside for rounds, new orders received and followed through. Patient updated on plan of care, verbalized understanding.
[2019-04-15 12:16] VITALS: BP 110/73
--- NOTE | 2019-04-15 18:51 | NUR ---
Discharge instructions given as ordered. Encourage to follow up with PMD as instructed. All questions and concerns addressed. Patient verbalized understanding. Medication reconciliation form completed and copy given to patient. Triple lumen PICC line removed to right upper arm, intact, pressure dressing applied. Telemetry unit returned to ICU. Prescription for Keflex 500 mg called into [facility] in [place], message left on voicemail with all requested information. Patient awaiting transportation.
--- NOTE | 2019-04-15 19:06 | NUR ---
Care endorsed to CHRISTIANE Rubio, night nurse.
--- NOTE | 2019-04-15 19:11 | NUR ---
New prescriptions for Lasix 40 mg 1 tab po qd and Lasix 20 meq 1 tab po qd called into [facility] in [place], message left on voicemail since pharmacy is closed. Patient informed to picking crew supervisor tomorrow, verbalized understanding.
--- NOTE | 2019-04-15 19:20 | NUR ---
Discharged Patient taken to vehicle via wheelchair with all personal belongings, accompanied by staff and family member. PICC line noted to be removed with pressure dressing applied, telemetry unit noted to be removed, all wrist bands removed. No distress noted at time of departure.
== END 2019-04-15 19:20 | disposition home or self-care (01) | DRG 602 ==
LOC: EDBD 19:15 → ER 19:22 → TELE 04-07 02:28 → TELE-WESTW 04-07 04:34 → WEST WING 04-10 13:00 → TELE-WESTW 04-11 20:43
PROVIDERS: ADMIT Nurse Practitioner Family; ATTEND Internal Medicine Cardiovascular Disease
PROC: 5A09357 Assistance with Respiratory Ventilation, Less than 24 Consecutive Hours, Continuous Positive Airway Pressure (ICD-10-PCS; 2019-04-08)
PROC: 02HV33Z Insertion of Infusion Device into Superior Vena Cava, Percutaneous Approach (ICD-10-PCS; principal; 2019-04-11)
DX: L03.115 Cellulitis of right lower limb (principal); I50.41 Acute combined systolic (congestive) and diastolic (congestive) heart failure; I13.0 Hypertensive heart and chronic kidney disease with heart failure and stage 1 through stage 4 chronic kidney disease, or unspecified chronic kidney disease; Z68.42 Body mass index [BMI] 45.0-49.9, adult; L03.116 Cellulitis of left lower limb; N18.3 Chronic kidney disease, stage 3 (moderate); E11.22 Type 2 diabetes mellitus with diabetic chronic kidney disease; E11.649 Type 2 diabetes mellitus with hypoglycemia without coma; E66.01 Morbid (severe) obesity due to excess calories; E11.40 Type 2 diabetes mellitus with diabetic neuropathy, unspecified; Z83.3 Family history of diabetes mellitus; Z79.82 Long term (current) use of aspirin; Z79.899 Other long term (current) drug therapy
CPT/HCPCS: 36415; 36569; 70450; 71045; 80048; 80053; 81001; 82962; 83036; 83605; 83880; 84443; 84484; 85025; 85379; 85610; 85730; 86141; 87040; 87077; 87186; 87205; 93005; 93306; 93970; 94660; 94761; 96365; G0378; J0696; J1815; J1956; J2405; J3490; J7060